=== PATIENT | female | born 1985 ===

== ENCOUNTER 2018-09-17 19:05 | Emergency (ER) | payer BC ==
[2018-09-17 19:18] VITALS: BMI 32.3
[2018-09-17 19:27] VITALS: O2SAT 98
[2018-09-17] MEDS ORDERED: Lidocaine 2% Inj (20ml) IJ STA (19:40)
[2018-09-17] MEDS ORDERED: TDAP Vaccine 0.5 mL Syr IM ONE (19:40)
[2018-09-17] MEDS ORDERED: Lidocaine PF 2% (5 ml) Inj (For Cardiac Arrhy) ONE (19:46)
--- NOTE | 2018-09-17 20:05 | ED PDOC ---
Arrival/HPI - General Chief Complaint: Abnormal Skin Integrity Time Seen by Provider: 09/17/18 19:30 - History of Present Illness Narrative History of Present Illness (Text): 33 y/o F p/w L hand laceration suffered 10 minutes prior to arrival. States accidentally cut on opened can lid, applied pressure immediately, no bleeding on arrival. Last tetanus 12 years ago. Past Medical History - Cardiac Hx Cardiac Disorders: No - Pulmonary Hx Respiratory Disorders: No - Neurological Hx Neurological Disorder: No - HEENT Hx HEENT Disorder: No - Renal Hx Renal Disorder: No - Endocrine/Metabolic Hx Endocrine Disorders: No - Hematological/Oncological Hx Blood Disorders: No - Integumentary Hx Dermatological Disorder: No - Musculoskeletal/Rheumatological Hx Musculoskeletal Disorders: No - Gastrointestinal Hx Gastrointestinal Disorders: No - Genitourinary/Gynecological Hx Genitourinary Disorders: No - Psychiatric Hx Psychophysiologic Disorder: No Hx Substance Use: No - Anesthesia Hx Anesthesia: No Family/Social History Family/Social History: No Known Family HX Smoking Status: Never Smoked Hx Alcohol Use: Yes Frequency of alcohol use: Socially Hx Substance Use: No Allergies/Home Meds Allergies/Adverse Reactions: Allergies aspirin Allergy (Verified 09/17/18 19:19) URTICARIA Review of Systems - Physician Review All systems were reviewed & negative as marked: Yes - Review of Systems Constitutional: absent: Fevers Respiratory: absent: SOB Physical Exam - Physical Exam Narrative Physical Exam (Text): Gen: NAD Head: AT CV: Radial pulse 2+, cap refill < 2 seconds Neuro: Motor intact in digits and wrist Skin: 1.5 cm laceration on L dorsal hand proximal to 1st digit without active bleeding Vital Signs Temp Pulse Resp BP Pulse Ox 09/17/18 19:26 98.4 F 79 18 125/71 98 Medical Decision Making ED Course and Treatment: Bacitracin and gauze bandage applied. Instructed to have sutures removed in 7-10 days, return immediately for fever, redness, discharge of pus, or any other problem. - Medication Orders Current Medication Orders: Discontinued Medications Lidocaine HCl (Lidocaine 2% 20ml Vial) 1 ml IJ STAT STA Stop: 09/17/18 19:41 Tetanus/Reduced Diphtheria/Acell Pertussis (Boostrix Vaccine Inj) 0.5 ml IM .ONCE ONE Stop: 09/17/18 19:41 Disposition/Present on Arrival - Present on Arrival Any Indicators Present on Arrival: No History of DVT/PE: No History of Uncontrolled Diabetes: No Urinary Catheter: No History of Decub. Ulcer: No History Surgical Site Infection Following: None - Disposition Have Diagnosis and Disposition been Completed?: Yes Diagnosis: Laceration Disposition: HOME/ ROUTINE Disposition Time: 20:04 Patient Plan: Discharge Patient Problems: Current Active Problems Problem Status Onset Laceration Acute Condition: STABLE Discharge Instructions (ExitCare): Laceration Repair Prescriptions: Bacitracin Ointment [Bacitracin] 1 appl TOP TID #1 tube Forms: OpenLabel (Faroese) Laceration - Laceration Repair No standard instances Wound Length (In cm): 1.5 Description Of Wound: Linear Wound Cleansed With: Betadine Anesthesia: Lidocaine 2% Wound Examination: Irrigated With Saline, No FB With Wound Exploration, No Tendon Injury With Wound Exploration Wound Closure: Suture (#3) Suture Technique And Material Used: Interrupted, Nylon (4-0) Wound Complexity: Simple
[2018-09-17 20:20] VITALS: BP 122/81; PULSE 82; RESP 17; TEMP 98.3
== END 2018-09-17 20:20 | disposition home or self-care (01) ==
LOC: ED 19:05
DX: S61.412A Laceration without foreign body of left hand, initial encounter (principal); W26.8XXA Contact with other sharp object(s), not elsewhere classified, initial encounter; Y92.9 Unspecified place or not applicable; Z23 Encounter for immunization